=== PATIENT | female | born 1950 | race Caucasian/White ===

== ENCOUNTER → 2017-01-20 | Outpatient (CLI) | payer OTHER, MEDICARE | LOC: FIMAGING 12:43 | PROVIDERS: ATTEND Obstetrics & Gynecology | DX: N63.21 Unspecified lump in the left breast, upper outer quadrant (principal) | CPT/HCPCS: 76641; G0204 ==

== ENCOUNTER → 2017-01-27 | Outpatient (CLI) | payer OTHER, MEDICARE ==
[~2017-01-27] MED LIST: BUPIVACAINE 0.5% 10 ML SDV ONE; LIDOCAINE 1% 300 MG/30 ML SDV ONE; THROMBIN (BOVINE) 5,000 UNIT VIAL TP ONE
== END ==
LOC: FIMAGING 07:18
PROVIDERS: ATTEND Obstetrics & Gynecology
PROC: 0HBU3ZX Excision of Left Breast, Percutaneous Approach, Diagnostic (ICD-10-PCS; principal; 2017-01-27)
DX: C79.81 Secondary malignant neoplasm of breast (principal)
CPT/HCPCS: 19083; 88360; G0206

== ENCOUNTER 2017-04-10 11:58 | Emergency (ER) | payer OTHER, MEDICARE ==
[2017-04-10 12:09] VITALS: RESP 18
--- NOTE | 2017-04-10 13:26 | EDPHY ---
H & P Time Seen by Provider: 04/10/17 13:24 HPI/ROS: CHIEF COMPLAINT: Right hip pain after a fall HISTORY OF PRESENT ILLNESS: Patient was pushing a grocery cart at the [facility] yesterday evening when the wheel of the cart turned sideways and caused her to fall. She has had right-sided lateral hip pain since then which is worse with walking. Does not radiate. Symptoms are mild to medium. Started just after the fall. REVIEW OF SYSTEMS: Eye: no change in vision ENT: No symptoms Cardiac: No syncope Pulmonary: Not short of breath Abdomen: No abdominal pain Musculoskeletal: no back pain or neck pain Skin: Small left knee abrasion Neuro: No weakness or numbness distally to the right hip Constitutional: no fever : no urinary symptoms A comprehensive 10 point review of systems is otherwise negative aside from elements mentioned in the history of present illness. PAST MEDICAL HISTORY: Includes multiple sclerosis and melanoma, depression Social history: No local primary care provider General Appearance: Alert and conversant, cooperative. Eyes: No scleral icterus. ENT, Mouth: Normal mucous membranes. Respiratory: Normal respiratory effort, breath sounds equal, lungs are clear to auscultation. Cardiovascular: Regular rate and rhythm. Gastrointestinal: Abdomen is soft and non tender. Neurological: Alert, face symmetric, normal motor and sensory in extremities. Skin: Small abrasion left knee Musculoskeletal: No midline spinal tenderness. Tender to palpation laterally over the greater trochanter of the right hip, no hip pain with axial loading, a little bit with internal rotation. Normal motor sensory and vascular in the right foot. Remainder of extremities nontender. Psychiatric: Not agitated. Emergency Department course/MDM: Lower suspicion given physical exam for occult hip fracture, right hip x-ray ordered. 1407: Normal x-ray, will do CT given possibility of occult fracture in 66-year- old woman. 1436: CT right hip looks negative without evidence of fracture in the pelvis or femur. 1500: Results discussed, symptomatic treatment, declined narcotics. 1519: Discussed with Dr. Negron who agrees negative CT hip. Smoking Status: Former smoker Constitutional: Initial Vital Signs Temperature (C) 36.6 C 04/10/17 12:00 Heart Rate 63 04/10/17 12:00 Respiratory Rate 18 04/10/17 12:00 Blood Pressure 115/67 04/10/17 12:00 O2 Sat (%) 94 04/10/17 12:00 O2 Delivery Mode Room Air Allergies/Adverse Reactions: No Known Allergies Allergy (Verified 04/10/17 12:09) Home Medications: Medication Instructions Recorded Amantadine HCl [Symmetrel] 300 mg PO DAILY 03/27/16 PARoxetine HCL [Paxil 20mg (*)] 20 mg PO DAILY 03/27/16 Pembrolizumab [Keytruda] 100 mg IV 04/10/17 Medical Decision Making - Diagnostics Imaging Results: Imaging Impressions Hip X-Ray 04/10/17 13:36 Impression: Negative for fracture. Right hip x-ray negative for fracture. Imaging: I viewed and interpreted images myself Departure - Departure Disposition: Home, Routine, Self-Care Clinical Impression: Contusion of right hip Qualifiers: Encounter type: initial encounter Qualified Code(s): S70.01XA - Contusion of right hip, initial encounter Condition: Good Instructions: Contusion in Adults (ED) Referrals: Vance Vera MD [Medical Doctor] - 3-4 days, if not improved
[2017-04-10 15:25] VITALS: BP 115/78; PULSE 81; TEMP 98.6; O2SAT 97
== END 2017-04-10 15:25 | disposition home or self-care (01) ==
DX: S70.01XA Contusion of right hip, initial encounter (principal); Z87.891 Personal history of nicotine dependence; W18.39XA Other fall on same level, initial encounter; Y92.512 Supermarket, store or market as the place of occurrence of the external cause

== ENCOUNTER → 2017-06-03 | Outpatient (CLI) | payer OTHER, MEDICARE ==
[~2017-06-03] MED LIST changes: -BUPIVACAINE 0.5% 10 ML SDV ONE; +GADOBUTROL 10 ML VIAL IVP ONE; -LIDOCAINE 1% 300 MG/30 ML SDV ONE; -THROMBIN (BOVINE) 5,000 UNIT VIAL TP ONE
== END ==
LOC: FIMAGING 09:14
DX: G35 Multiple sclerosis (principal); C43.9 Malignant melanoma of skin, unspecified
CPT/HCPCS: 70553; A9585

== ENCOUNTER → 2017-07-12 | Outpatient (CLI) | payer OTHER, MEDICARE | LOC: FIMAGING 14:44 | PROVIDERS: ATTEND Internal Medicine | DX: M79.1 Myalgia (principal) ==

== ENCOUNTER → 2017-08-26 | Outpatient (CLI) | payer OTHER, MEDICARE | LOC: FIMAGING 08:57 | DX: R51 Headache (principal); Z85.820 Personal history of malignant melanoma of skin | CPT/HCPCS: 70543; A9585 ==

== ENCOUNTER → 2017-08-31 | Outpatient (CLI) | payer OTHER, MEDICARE | LOC: FIMAGING 08:31 | DX: R93.0 Abnormal findings on diagnostic imaging of skull and head, not elsewhere classified (principal); R51 Headache; C43.9 Malignant melanoma of skin, unspecified | CPT/HCPCS: 70553; A9585 ==

== ENCOUNTER → 2018-02-17 | Outpatient (CLI) | payer OTHER, MEDICARE | LOC: FIMAGING 12:26 | PROVIDERS: ATTEND Internal Medicine | DX: E27.40 Unspecified adrenocortical insufficiency (principal); M89.9 Disorder of bone, unspecified; E07.9 Disorder of thyroid, unspecified; Z79.52 Long term (current) use of systemic steroids; M85.80 Other specified disorders of bone density and structure, unspecified site ==

== ENCOUNTER 2018-09-12 13:23 | Inpatient (IN) | payer OTHER, MEDICARE | END 2018-09-14 15:26 | disposition home or self-care (01) | LOC: F3E 15:47 ==